=== PATIENT | male | born 1960 | race Two or more races ===

== ENCOUNTER 2020-03-14 14:18 | Inpatient (IN) | payer OTHER ==
[~2020-03-14] VITALS: Ht 157.5 cm; Wt 67.1 kg
--- NOTE | 2020-03-14 14:25 | NUR ---
BIBRA with AMS, more altered than normal per familty report. pt alert and able to follow commands at this time. no c/o pain or discomfort. awaiting for MD chou
[2020-03-14] MEDS ORDERED: IV NS 0.9% 1,000 ML BAG IV ONE (14:30)
[2020-03-14] MEDS ORDERED: PROP20TA19 PO (14:36)
[2020-03-14] MEDS ORDERED: POTA20TA83 PO (14:36)
[2020-03-14] MEDS ORDERED: AMIT75TA2 PO (14:36)
--- NOTE | 2020-03-14 15:09 | NUR ---
tried to collect urine. unable to collect at this time
[2020-03-14 15:37] LABS: CALCIUM, SERUM 9.3 mg/dL (8.5-10.1); CARBON DIOXIDE 27 mmol/L (21-32); CHLORIDE 105 mmol/L (98-107); CREATININE 1.3 mg/dL (0.6-1.3); GLUCOSE 112 mg/dL (74-106); POTASSIUM 4.2 mmol/L (3.5-5.1); SERUM AMMONIA 10 umol/L (11-32); SODIUM SERUM 142 mmol/L (136-145); UREA NITROGEN, BLOOD 19 mg/dL (7-18)
[2020-03-14 15:49] LABS: THYROID STIMULATING HORMONE 0.497 uIU/mL (0.358-3.74)
[2020-03-14 15:51] LABS: ALANINE AMINOTRANSFERASE 35 U/L (12-78); ALBUMIN 4.1 g/dL (3.4-5.0); ALCOHOL, BLOOD < 3 mg/dL (0-0); ALKALINE PHOSPHATASE 88 U/L (46-116); ASPARTATE AMINOTRANSFERASE 21 U/L (15-37); BILIRUBIN,DIRECT 0.2 mg/dL (0.0-0.2); BILIRUBIN,TOTAL 0.8 mg/dL (0.2-1.0); TOTAL PROTEIN, SERUM 7.9 g/dL (6.4-8.2)
[2020-03-14 15:52] LABS: BASOPHILS % (AUTO) 0.1 % (0.0-2.0); HEMATOCRIT 44 % (39-51); HEMOGLOBIN 14.6 g/dL (13.5-17.5); LYMPHOCYTES # (AUTO) 0.8 /CMM (0.8-4.8); MEAN CORPUSCULAR HGB CONC 33 g/dl (31.0-36.0); MEAN CORPUSCULAR VOLUME 85 fL (80-96); MONOCYTES # (AUTO) 0.8 /CMM (0.1-1.30); MONOCYTES % (AUTO) 6.1 % (2.0-12.0); NEUTROPHILS # (AUTO) 12.1 /CMM (1.8-8.9); NEUTROPHILS % (AUTO) 87.8 % (43.0-81.0); RED BLOOD CELL COUNT(AUTO) 5.17 MIL/uL (4.5-6.0); WHITE BLOOD COUNT (AUTO) 13.8 K/uL (4.3-11.0)
--- NOTE | 2020-03-14 15:55 | NUR ---
URINE COLLECTED SENT TO LAB
[2020-03-14 16:13] LABS: PLATELET COUNT (AUTO) 180 /CMM (150-450)
[2020-03-14 16:20] LABS: BILIRUBIN,URINE Negative (NEGATIVE); BLOOD, URINE Small Ery/uL (NEGATIVE); COLOR,URINE YELLOW (YELLOW); LEUKOCYTE ESTERASE ,URINE Negative (NEGATIVE); NITRITE, URINE Negative (NEGATIVE); PROTEIN,URINE 30 mg/dl (NEGATIVE); UGLUCOSE Negative (NEGATIVE); UROBILINOGEN,URINE 0.2 EU/dL (0.2)
[2020-03-14 16:37] LABS: BACTERIA,URINE Few /HPF (None Seen); SQUAMOUS EPITHELIAL CELL,UR Few /HPF (None Seen); WBC,URINE 0-2 /HPF (0-3)
[2020-03-14 16:38] LABS: MUCUS,URINE Few /LPF (None Seen); URINE AMORPHOUS URATE Few /HPF (None Seen)
--- NOTE | 2020-03-14 17:37 | NUR ---
TRIED CALLING DAUGHTER OLVIN, NO ANSWER. #[id number]
--- NOTE | 2020-03-14 17:42 | NUR ---
NURSING SUP GAVE TELE BED 106.
--- NOTE | 2020-03-14 18:47 | NUR ---
spoke to Brother (thad). gave an update. #[phone]
--- NOTE | 2020-03-14 18:51 | NUR ---
IV removed. Catheter intact and site benign. Pressure and 4x4 applied to site. No bleeding noted.
--- NOTE | 2020-03-14 18:59 | NUR ---
for any information regarding patient, please call Brother (Shakeel) #[phone]. syriac speaking
--- NOTE | 2020-03-14 19:05 | NUR ---
BED 106
--- NOTE | 2020-03-14 19:07 | NUR ---
BED CANCELLED, NURSING FISHER TROT LINE WILL CALL BACK.
--- NOTE | 2020-03-14 19:20 | NUR ---
PATIENT FOUND STANDING NEXT TO BED PULLLING OUT PULSE OXIMETRY DEVICE. PATIENT IS REDIRECTABLE. PATIENT RETURNED TO BED, NEW PULSE OXIMETRY DEVICE PLACED ON PATIENT.
--- NOTE | 2020-03-14 20:01 | NUR ---
ROOM ASSIGNMENT IS 309-1
--- NOTE | 2020-03-14 20:30 | NUR ---
REPORT GIVEN TO JAYLEEN CARVAJAL FOR YAMILET.
[2020-03-14] MEDS ORDERED: Z GUARD REMEDY 2 OZ OINT TP PRN (21:00)
[2020-03-14] MEDS ORDERED: MAGNESIUM HYDROXIDE 30 ML UDC PO PRN (21:00)
[2020-03-14] MEDS ORDERED: HYDROCODONE/APAP 5/325MG TABLET PO PRN (21:00)
[2020-03-14] MEDS ORDERED: ONDANSETRON HCL/PF 4 MG/2 ML VIAL IVP PRN (21:00)
[2020-03-14] MEDS ORDERED: ACETAMINOPHEN 325 MG TABLET PO PRN (21:00)
[2020-03-14] MEDS ORDERED: MAG HYDROX/AL HYDROX/SIMETH 30 ML UDC PO PRN (21:00)
[2020-03-14] MEDS ORDERED: ZOLPIDEM TARTRATE 5 MG TABLET PO PRN (21:00)
--- NOTE | 2020-03-14 21:14 | NUR ---
PATIENT TAKEN UP TO ASSIGNED ROOM.
[2020-03-14 21:15] VITALS: BP 159/114
--- NOTE | 2020-03-14 21:20 | NUR ---
PORCELAIN FINISHER NOTES PATIENT RECEIVED FROM ER VIA GURNEY. ACCOMPANIED BY ER STAFF. PATIENT A/O 2, POOR HISTORIAN. STABLE ON RA WITH BREATHING EVEN AND UNLABORED, NO SOB NOTED. NO SIGNS OF ACUTE DISTRESS. NO COMPLAINTS OF PAIN OR DISCOMFORT AT THE MOMENT. ALL BELONGINGS ACCOUNTED FOR. SKIN ASSESSMENT DONE. VITALS TAKEN. IV LOCATED ON L HAND #20 SL. PATIENT ORIENTED TO ROOM AND STAFF. SAFETY PRECAUTIONS IN PLACE WITH BED IN LOWEST POSITION, CALL LIGHT WITHIN REACH, BREAKS ON, SIDE RAILS UP. WILL CONTINUE TO MONITOR THROUGHOUT THE NIGHT.
[2020-03-14] MEDS ORDERED: AMITRIPTYLINE HCL 25 MG TABLET PO SCH (22:00)
--- NOTE | 2020-03-14 22:09 | NUR ---
ALENA NOTES PER MD [facility] HOME MEDS OF PROPANOLOL AND AMITRITYLINE IT MAY BE SIDE EFFECTS OF MEDS. Addendum: 03/14/20 at 2242 by JAYLEEN RAMOS RN RN NOTES PER MD [facility] MEDS OF PROPANOLOL AND AMITRITYLINE IT MAY BE CAUSE OF ALTERED MENTAL STATUS.
[2020-03-15 06:42] LABS: BASOPHILS % (AUTO) 0.2 % (0.0-2.0); EOSINOPHILS % (AUTO) 1.4 % (0.0-6.0); HEMATOCRIT 42 % (39-51); HEMOGLOBIN 13.9 g/dL (13.5-17.5); LYMPHOCYTES # (AUTO) 1.6 /CMM (0.8-4.8); LYMPHOCYTES % (AUTO) 20.9 % (20.0-44.0); MEAN CORPUSCULAR HGB CONC 33 g/dl (31.0-36.0); MEAN CORPUSCULAR VOLUME 86 fL (80-96); MONOCYTES # (AUTO) 0.5 /CMM (0.1-1.30); NEUTROPHILS # (AUTO) 5.5 /CMM (1.8-8.9); NEUTROPHILS % (AUTO) 71.5 % (43.0-81.0); PLATELET COUNT (AUTO) 195 /CMM (150-450); RED BLOOD CELL COUNT(AUTO) 4.85 MIL/uL (4.5-6.0); WHITE BLOOD COUNT (AUTO) 7.7 K/uL (4.3-11.0)
--- NOTE | 2020-03-15 06:44 | NUR ---
RN CLOSING NOTES PATIENT IN BED RESTING A/O X 2. STABLE ON RA WITH BREATHING EVEN AND UNLABORED, NO SOB NOTED. NO SIGNS OF ACUTE DISTRESS. NO COMPLAINTS OF PAIN OR DISCOMFORT AT THE MOMENT. IV LOCATED ON R AC #22 SL PATENT AND INTACT. SAFETY PRECAUTIONS IN PLACE WITH BED IN LOWEST POSITION, CALL LIGHT WITHIN REACH, BREAKS ON, BED ALARM ON. ALL NEEDS ATTENDED TO. WILL ENDORSE TO ONCOMING SHIFT ABOUT YAMILET.
[2020-03-15 07:09] LABS: CREATININE 1.1 mg/dL (0.6-1.3); MAGNESIUM 1.8 mg/dL (1.8-2.4); PHOSPHORUS 3.4 mg/dL (2.5-4.9); POTASSIUM 3.5 mmol/L (3.5-5.1)
--- NOTE | 2020-03-15 07:30 | NUR ---
RN OPENING NOTE: RECEIVED PT AWAKE LYING IN BED. NO S/SX OR COMPLAINTS OF PAIN AT THIS TIME. PATIENT IS DISPLAYING NO S/SX OF APPARENT DISTRESS AT THIS TIME. PATIENT IS PRIMARILY FINNISH SPEAKING. A+OX2 WITH PERIODS OF CONFUSION. PATIENT BREATHING IS EQUAL AND UNLABORED. RIGHT AC #22 FLUSHED WITH NO S/S OF INFILTRATION NOTED. PATIENT IS INDEPENDENT WITH BED MOBILITY. PATIENT HAS NO FURTHER NEEDS AT PRESENT TIME. PATIENT EDUCATED ON THE USED OF THE CALL LIGHT. BED IN LOW AND LOCKED POSITION WITH SIDE RAILS UP X 2 FOR SAFETY
[2020-03-15 08:00] VITALS: BP 147/99
[2020-03-15] MEDS ORDERED: PROPRANOLOL HCL 10 MG TABLET PO SCH (09:00)
[2020-03-15 16:00] VITALS: BP 136/100
--- NOTE | 2020-03-15 19:00 | NUR ---
RN CLOSING NOTE: PT ALERT AND AWAKE SITTING IN BED. A+OX2. PRIMARILY MAORI SPEAKING, ABLE TO MAKE NEEDS KNOWN. NO S/SX OR COMPLAINTS OF PAIN AT PRESENT TIME. PATIENT BREATHING UNLABORED AND STABLE ON RA. SL FLUSHING, PATENT WITHOUT S/SX OF INFILTRATION. PATIENT INDEPENDENT WITH REPOSITIONING, ADLS AND PO INTAKE. CONTINENT AND USES URINAL. ALL PATIENT NEEDS ANTICIPATED AND MET. BED IN LOW AND LOCKED POSITION WITH SIDE RAILS UP X 2 FOR SAFETY.
--- NOTE | 2020-03-15 19:20 | NUR ---
Opening Notes: Report received from am nurse. Patient is alert, awake, and oriented x2. Able to make needs known. Maori speaking. No acute distress noted. Skin is intact. IV site noted on right AC, 22 g. Patent and intact, no s/s of infiltration noted. Patient assisted with ADLs. Kept clean and dry. Fall precautions observed. Call light within reach. VS WNL.
[2020-03-15 20:00] VITALS: BP 125/67
--- NOTE | 2020-03-15 23:16 | NUR ---
MS RN: CONTINUITY OF CARE Patient sitting up in bed, Alert oriented to self and place. Tolerating room air, denies any pain. Re oriented, calm and cooperative. Will cont to monitor.
--- NOTE | 2020-03-16 06:28 | NUR ---
MS RN: END OF SHIFT REPORT Patient VS remains stable. Independent with ADL and mobility. Mentation improved, A/O x3 cooperative and pleasant. Expressing to go home, denies pain or any discomfort. Will endorse to oncoming RN.
--- NOTE | 2020-03-16 07:07 | NUR ---
MS RN OPENING NOTES RECEIVED PT SITTING UP IN BED AT THIS TIME. AOX2-3. PT ANLE TO MAKE NEEDS KNOWN. NO SOB NOTED, NO S/S OF ANY ACUTE DISTRESS NOTED. NO C/O PAIN AT THIS TIME. RESPIRATIONS ARE EVEN AND UNLABORED WITH EQUAL RISE AND FALL IN CHEST. PT STABLE ON RA. IV ACCESS NOTED IN RAC G#22, INTACT, PATENT AND FLUSHING WELL. ASPIRATION AND SAFETY PRECAUTION IN PLACE AND MAINTAINED AT ALL TIMES. BED IN LOWEST LOCKED POSITION, HOB ELEVATED, SIDE RAILS UP X 2, CALL LIGHT AND TABLE WITHIN REACH. WILL CONTINUE TO MONITOR.
[2020-03-16] MEDS: ASPIRIN 81 MG TAB.CHEW PO SCH (08:45)
--- NOTE | 2020-03-16 18:12 | NUR ---
MS RN CLOSING NOTES PT AWAKE IN BED AT THIS TIME. PT REMAINED STABLE THROUGHOUT SHIFT. PT KEPT CLEAN AND DRY. ALL CARE, NEEDS, AND MEDICATIONS ADMINISTERED PER ORDER. SAFETY PRECAUTION IN PLACE AND MAINTAINED AT ALL TIMES. BED IN LOWEST LOCKED POSITION, HOB ELEVATED, SIDE RAILS UP X 2, CALL LIGHT AND TABLE WITHIN REACH. WILL ENDORSE TO PALS SPECIALIST NURSE FOR YAMILET
--- NOTE | 2020-03-16 19:32 | NUR ---
RN OPENING NOTES PATIENT RECEIVED AMBULATING IN THE HALLS, A/O X 2-3. STABLE ON RA WITH BREATHING EVEN AND UNLABORED, NO SOB NOTED. NO SIGNS OF ACUTE DISTRESS. NO COMPLAINTS OF PAIN OR DISCOMFORT. IV LOCATED ON R AC #22. SAFETY PRECAUTIONS IN PLACE WITH BED IN LOWEST POSITION, CALL LIGHT ON BED, BREAKS ON. WILL CONTINUE TO MONITOR THROUGHOUT THE NIGHT.
[2020-03-16 20:00] VITALS: BP_SYST 104; BP_SYST 154; BP_DIAS 50; BP_DIAS 84
--- NOTE | 2020-03-17 06:42 | NUR ---
RN CLOSING NOTES PATIENT RESTING IN BED, A/O X 2-3. STABLE ON RA WITH BREATHING EVEN AND UNLABORED, NO SOB NOTED. NO SIGNS OF ACUTE DISTRESS. NO COMPLAINTS OF PAIN OR DISCOMFORT. IV LOCATED ON R AC #22. SAFETY PRECAUTIONS IN PLACE WITH BED IN LOWEST POSITION, CALL LIGHT ON BED, BREAKS ON. ALL NEEDS ATTENDED TO. WILL ENDORSE TO ONCOMING SHIFT ABOUT YAMILET.
--- NOTE | 2020-03-17 07:41 | NUR ---
MS/RN OPENING NOTE RECEIVED PATIENT FROM MAINTENANCE PERSON NURSE. PATIENT IN STABLE CONDITION. A/O X3 ENGLISH SPEAKING PATIENT ON ROOM AIR TOLERATING WELL. BREATHING EVEN, NON LABORED, NO SOB NOTED. RIGHT AC #22 INTACT AND PATENT. SAFETY MEASURES IN PLACE. BED LOCKED AND IN LOWEST POSITION, CALL LIGHT WITHIN REACH. WILL CONTINUE TO MONITOR AND ENSURE SAFETY.
[2020-03-17 08:00] VITALS: BP 131/104
[2020-03-17 08:48] VITALS: BP 131/104
[2020-03-17] MEDS: ASPIRIN 81 MG TAB.CHEW PO SCH (08:58)
--- NOTE | 2020-03-17 09:00 | NUR ---
MS/RN HYPERTENSION BLOOD PRESSURE ELEVATED AT 131/104, DR AGARWAL MADE AWARE. NO ORDERS GIVEN, INSTRUCTED TO GIVE MEDICATION ONLY IF SBP >160
--- NOTE | 2020-03-17 15:22 | NUR ---
SS consult requested by Shai Fierro MD for Placement. Pt. is being followed by case management for D/C planning.
--- NOTE | 2020-03-17 16:05 | NUR ---
MS/RN S/B DR. AGARWAL CONTINUE PLAN OF CARE AWAITING PLACEMENT BY TAPER OPERATOR.
--- NOTE | 2020-03-17 16:17 | NUR ---
MS/RN NIH STROKE PACKET NIH STROKE PACKET ADDED AND COMPLETED AT REQUEST PER DIRECTOR OF EMERGENCY NURSING. PER MD PATIENT IS NOT HERE FOR ACUTE CVA, ONLY HISTORY ADMITTING DIAGNOSIS ACUTE ENCEPHALOPATHY.
[2020-03-17 16:22] VITALS: BP 134/101
[2020-03-17] MEDS ORDERED: ASPI-1169 PO (16:53)
--- NOTE | 2020-03-17 16:59 | NUR ---
MS/RN REPORT REPORT CALLED AND GIVEN TO ARABELLA IN [facility]. RADHAMES WILL BEING GOING TO ROOM 18B. FACULTY RESEARCH PHYSICIAN SCHEDULED FOR 1010.
--- NOTE | 2020-03-17 18:42 | NUR ---
MS/RN DISCHARGED PATIENT WAS DISCHARGED TO [facility] IN SEA CONDITION. ALL PERSONAL BELONGINGS WITH PATIENT AND SIGNED FOR ON BELONGING LIST. HEPLOCK REMOVED, PRESSURE DRESSING APPLIED. NAME BANDS REMOVED. ALL DISCHARGE MEDICATIONS EXPLAINED TO PATIENT, VERBALIZED UNDERSTANDING. REPORT CALLED TO ARABELLA IN [facility], PATIENT WILL BE GOING TO ROOM 18-B. TRANSPORT HERE TO CONTRACT GRAPHIC DESIGNER PATIENT, REPORT GIVEN TO PARAMEDICS, PATIENT LEFT THE FLOOR IN STABLE CONDITION.
== END 2020-03-17 18:43 | DRG 52 ==
LOC: ER 14:20 → TELE 20:26 → MED 21:17
PROVIDERS: ADMIT Family Medicine; ATTEND Student in an Organized Health Care Education/Training Program
DX: G93.41 Metabolic encephalopathy (principal); D72.829 Elevated white blood cell count, unspecified; E78.5 Hyperlipidemia, unspecified; F41.9 Anxiety disorder, unspecified; I10 Essential (primary) hypertension; Z86.73 Personal history of transient ischemic attack (TIA), and cerebral infarction without residual deficits; R73.9 Hyperglycemia, unspecified; N17.0 Acute kidney failure with tubular necrosis
CPT/HCPCS: 36415; 70450-TC; 71045-TC; 80048-TC; 80061-TC; 80076-TC; 81001; 82140-TC; 83735-TC; 84100-TC; 84443-TC; 84484-TC; 85025-TC; 85730-TC; 87081-TC; 97112-TC; 97116-TC; 97530-TC; C9803; G0378; G0480; J7030